=== PATIENT | female | born 1935 | race Caucasian/White ===

== ENCOUNTER 2020-04-07 23:24 | Emergency (ER) | payer MEDICARE, OTHER ==
[2020-04-07 23:31] VITALS: PULSE 130
[2020-04-08] MEDS ORDERED: Diltiazem 25 MG/5 ML SDV IVPUSH ONE (00:04)
--- NOTE | 2020-04-08 00:11 | EDM.PDOC ---
ED HPI GENERAL MEDICAL PROBLEM - General Chief Complaint: Abdominal Pain Stated Complaint: abd pain Time Seen by Provider: 04/08/20 00:00 Source of Information: Reports: Patient, RN History Limitations: Reports: No Limitations - History of Present Illness INITIAL COMMENTS - FREE TEXT/NARRATIVE: Pt presents tonight with right sided abdominal pain. Pain is lateral and where she points to is the upper to mid abdomen. She States that it started a couple of days ago and then became worse tonight. She had some increase in nausea today. Unsure if she took her meds today or not due to the nausea she was having. She thinks her head felt warm today but did not check her temp. No chills. She did not have diarrhea but had normal bowel movement today. She did vomit today unsure when the last time was. She denies any chest pain or SOB. She states that she can feel her heart beating fast "In my ears". She does have umbilical hernia that does not cause pain. Bowel sounds are hypoactive. Onset: Gradual Location: Reports: Abdomen Associated Symptoms: Reports: Nausea/Vomiting, Weakness. Denies: Chest Pain, Cough, Fever/Chills Right Upper Abdomen Pain Score (Numeric/FACES): 6 - Related Data Allergies Allergy/AdvReac Type Severity Reaction Status Date / Time atorvastatin [From Lipitor] Allergy Other Verified 04/07/20 23:33 Home Meds: Home Meds Apixaban [Eliquis] 2.5 mg PO BID 05/26/19 [History] Bumetanide [Bumex] 1 mg PO BID 05/26/19 [History] Metoprolol Tartrate [Lopressor] 12.5 mg PO BID 05/26/19 [History] dilTIAZem HCL [Cardizem Cd] 180 mg PO DAILY 05/26/19 [History] Past Medical History HEENT History: Reports: Impaired Vision, Other (See Below) Other HEENT History: WEARS CORRECTIVE LENS FOR READING. 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: Musculoskeletal History: Reports: None Neurological History: Reports: CVA Psychiatric History: Reports: None Endocrine/Metabolic History: Reports: None Hematologic History: Reports: Anemia, Blood Transfusion(s) Immunologic History: Reports: None Oncologic (Cancer) History: Reports: None Dermatologic History: Reports: None - Infectious Disease History Infectious Disease History: Reports: Chicken Pox, Influenza, MRSA - Past Surgical History Head Surgeries/Procedures: Reports: None HEENT Surgical History: Reports: Oral Surgery Cardiovascular Surgical History: Reports: None Respiratory Surgical History: Reports: None GI Surgical History: Reports: Hernia, Abdominal Female Surgical History: Reports: None Endocrine Surgical History: Reports: None Neurological Surgical History: Reports: None Musculoskeletal Surgical History: Reports: Other (See Below) Dermatological Surgical History: Reports: Skin Biopsy Social & Family History - Family History Family Medical History: No Pertinent Family History HEENT: Reports: Cataract Cardiac: Reports: Heart Failure, Stent Respiratory: Reports: None GI: Reports: None : Reports: None OBGYN: Reports: None Musculoskeletal: Reports: None Neurological: Reports: CVA, Seizure Psychiatric: Reports: None Endocrine/Metabolic: Reports: Diabetes, type II Hematologic: Reports: None Oncologic: Reports: Brain - Tobacco Use Tobacco Use Status *Q: Former Tobacco User Used Tobacco, but Quit: Yes Month/Year Tobacco Last Used: many years ago - Caffeine Use Caffeine Use: Reports: Coffee Other Caffeine Use: 24oz coffee. 4 cans soda daily - Recreational Drug Use Recreational Drug Use: No ED ROS GENERAL - Review of Systems Review Of Systems: See Below Constitutional: Reports: Weakness. Denies: Fever, Chills HEENT: Reports: No Symptoms Respiratory: Denies: Shortness of Breath, Cough Cardiovascular: Denies: Chest Pain, Edema GI/Abdominal: Reports: Abdominal Pain, Nausea, Vomiting. Denies: Constipation, Diarrhea : Reports: No Symptoms Musculoskeletal: Reports: No Symptoms Skin: Reports: No Symptoms Neurological: Reports: No Symptoms Psychiatric: Reports: No Symptoms ED EXAM, GI/ABD - Physical Exam Exam: See Below Exam Limited By: No Limitations General Appearance: Alert, WD/WN, Mild Distress Ears: Normal External Exam Throat/Mouth: Normal Inspection, Normal Oropharynx Head: Atraumatic, Normocephalic Neck: Normal Inspection, Supple, Non-Tender Respiratory/Chest: No Respiratory Distress, Lungs Clear, Normal Breath Sounds Cardiovascular: No Edema, Tachycardia, Irregularly Irregular GI/Abdominal Exam: Soft, Tender (to the right side of abdomen, laterally and upper to mid quadrants.. No rigidity. No guarding), Other (bowel sounds hypo active.) Back Exam: Normal Inspection Extremities: No Pedal Edema, Normal Capillary Refill Neurological: Alert, Oriented Skin Exam: Warm, Dry, Intact Course - Vital Signs Last Recorded V/S: Last Vital Signs Temp 98.4 F 04/08/20 00:22 Pulse 130 H 04/07/20 23:24 Resp 20 04/08/20 00:22 BP 158/54 H 04/08/20 00:22 Pulse Ox 98 04/08/20 00:22 - Orders/Labs/Meds Orders: Active Orders 24 hr Category Date Time Status Abdomen Pelvis wo Cont [CT] Stat Exams 04/08/20 00:48 Ordered Chest wo Cont [CT] Stat Exams 04/08/20 00:48 Ordered Pharmacy to Dose - Vancomycin Med 04/08/20 00:51 Once 1 dose .XX ONETIME ONE Piperacillin/Tazobactam [Piperacil-Tazobact] 3.375 gm Med 04/08/20 13:00 Active Sodium Chloride 0.9% [Normal Saline] 100 ml IV Q12H Piperacillin/Tazobactam [Piperacil-Tazobact] 4.5 gm Med 04/08/20 01:00 Active Sodium Chloride 0.9% [Normal Saline] 100 ml IV ONETIME Potassium Chloride [KCL 20 MEQ in Water 100 ML] 20 meq Med 04/08/20 00:54 Ordered Premix Bag 1 bag IV ONETIME Medication Orders Potassium Chloride 20 meq/ (Premix) 100 mls @ 25 mls/hr IV ONETIME ONE Stop: 04/08/20 04:53 Piperacillin Sod/Tazobactam (Sod 4.5 gm/ Sodium Chloride) 100 mls @ 200 mls/hr IV ONETIME ONE Stop: 04/08/20 01:29 Piperacillin Sod/Tazobactam (Sod 3.375 gm/ Sodium Chloride) 100 mls @ 25 mls/hr IV Q12H BRENDA Vancomycin HCl (Pharmacy To Dose - Vancomycin) 1 dose .XX ONETIME ONE Stop: 04/08/20 00:52 Labs: Laboratory Tests 04/07/20 04/07/20 04/07/20 Range/Units 23:47 23:54 23:58 WBC 26.9 H* (5.0-10.0) 10^3/uL RBC 5.13 (4.00-5.50) 10^6/uL Hgb 15.3 (12.0-16.0) g/dL Hct 45.3 (37.0-47.0) % MCV 88.3 (82.0-94.0) fL MCH 29.8 (27.0-32.0) pg MCHC 33.8 (33.0-38.0) g/dL RDW Coeff of Hilario 13.8 (11.0-15.0) % Plt Count 186 (150-400) 10^3/uL Add Manual Diff Yes Neutrophils % (Manual) 90 H (35-85) % Lymphocytes % (Manual) 6 L (21-55) % Monocytes % (Manual) 4 (2-12) % Sodium (136-145) mEq/L Potassium (3.5-5.0) mEq/L Chloride (98-106) mEq/L Carbon Dioxide (21-32) mmol/L BUN (7-18) mg/dL Creatinine (0.6-1.0) mg/dL Est Cr Clr Drug Dosing mL/min Estimated GFR (MDRD) (>=60) mL/min Glucose (75-99) mg/dL Lactic Acid (0.4-2.0) mmol/L Calcium (8.4-10.1) mg/dL Total Bilirubin (0.0-1.0) mg/dL AST (15-37) U/L ALT (12-78) U/L Alkaline Phosphatase (46-116) U/L Lactate Dehydrogenase (100-190) U/L Creatine Kinase (21-215) U/L Troponin I (0.00-0.06) ng/mL C-Reactive Protein (0.2-0.8) mg/dL NT-Pro-B Natriuret Pep (0-1000) pg/mL Total Protein (6.4-8.2) g/dL Albumin (3.4-5.0) g/dL Amylase (25-115) U/L Urine Color Yellow (YELLOW) Urine Appearance Clear (CLEAR) Urine pH 5.5 (4.5-8.0) Ur Specific Satin >= 1.030 H (1.003-1.020) Urine Protein Negative (NEGATIVE) mg/dL Urine Glucose (UA) Negative (NEGATIVE) mg/dL Urine Ketones Negative (NEGATIVE) mg/dL Urine Occult Blood Trace-intact H (NEGATIVE) Urine Nitrite Negative (NEGATIVE) Urine Bilirubin Negative (NEGATIVE) Urine Urobilinogen 1.0 (0.2-1.0) EU/dL Ur Leukocyte Esterase Negative (NEGATIVE) Urine RBC 0-5 (0-5) /HPF Urine WBC 0-5 (0-5) /HPF Ur Epithelial Cells Moderate H (NOT SEEN) /HPF Urine Bacteria Occasional H (NOT SEEN) /HPF Urinalysis Comment SARS CoV-2 RNA Rapid PHUC Negative (NEGATIVE) 04/07/20 04/07/20 04/08/20 Range/Units 23:58 23:58 00:32 WBC (5.0-10.0) 10^3/uL RBC (4.00-5.50) 10^6/uL Hgb (12.0-16.0) g/dL Hct (37.0-47.0) % MCV (82.0-94.0) fL MCH (27.0-32.0) pg MCHC (33.0-38.0) g/dL RDW Coeff of Hilario (11.0-15.0) % Plt Count (150-400) 10^3/uL Add Manual Diff Neutrophils % (Manual) (35-85) % Lymphocytes % (Manual) (21-55) % Monocytes % (Manual) (2-12) % Sodium 139 (136-145) mEq/L Potassium 2.6 L* (3.5-5.0) mEq/L Chloride 97 L (98-106) mEq/L Carbon Dioxide 31 (21-32) mmol/L BUN 33 H (7-18) mg/dL Creatinine 2.2 H (0.6-1.0) mg/dL Est Cr Clr Drug Dosing 18.74 mL/min Estimated GFR (MDRD) 21 L (>=60) mL/min Glucose 202 H (75-99) mg/dL Lactic Acid 4.6 H (0.4-2.0) mmol/L Calcium 9.7 (8.4-10.1) mg/dL Total Bilirubin 2.3 H (0.0-1.0) mg/dL AST 59 H (15-37) U/L ALT 37 (12-78) U/L Alkaline Phosphatase 110 (46-116) U/L Lactate Dehydrogenase 178 (100-190) U/L Creatine Kinase 26 (21-215) U/L Troponin I 0.025 (0.00-0.06) ng/mL C-Reactive Protein 11.3 H (0.2-0.8) mg/dL NT-Pro-B Natriuret Pep 62995 H (0-1000) pg/mL Total Protein 7.9 (6.4-8.2) g/dL Albumin 3.1 L (3.4-5.0) g/dL Amylase 67 (25-115) U/L Urine Color (YELLOW) Urine Appearance (CLEAR) Urine pH (4.5-8.0) Ur Specific Satin (1.003-1.020) Urine Protein (NEGATIVE) mg/dL Urine Glucose (UA) (NEGATIVE) mg/dL Urine Ketones (NEGATIVE) mg/dL Urine Occult Blood (NEGATIVE) Urine Nitrite (NEGATIVE) Urine Bilirubin (NEGATIVE) Urine Urobilinogen (0.2-1.0) EU/dL Ur Leukocyte Esterase (NEGATIVE) Urine RBC (0-5) /HPF Urine WBC (0-5) /HPF Ur Epithelial Cells (NOT SEEN) /HPF Urine Bacteria (NOT SEEN) /HPF Urinalysis Comment SARS CoV-2 RNA Rapid PHUC (NEGATIVE) Meds: Medications Generic Name Dose Route Start Last Admin Trade Name Freq PRN Reason Stop Dose Admin Potassium Chloride 20 meq/ 100 mls @ 25 mls/hr 04/08/20 00:54 Premix IV 04/08/20 04:53 ONETIME ONE Piperacillin Sod/Tazobactam 100 mls @ 200 mls/hr 04/08/20 01:00 Sod 4.5 gm/ Sodium Chloride IV 04/08/20 01:29 ONETIME ONE Piperacillin Sod/Tazobactam 100 mls @ 25 mls/hr 04/08/20 13:00 Sod 3.375 gm/ Sodium Chloride IV Q12H BRENDA Vancomycin HCl 1 dose 04/08/20 00:51 Pharmacy To Dose - Vancomycin .XX 04/08/20 00:52 ONETIME ONE Discontinued Medications Generic Name Dose Route Start Last Admin Trade Name Freq PRN Reason Stop Dose Admin Diltiazem HCl 10 mg 04/08/20 00:04 04/08/20 00:07 Diltiazem IVPUSH 04/08/20 00:05 10 mg ONETIME ONE Administration - Re-Assessments/Exams Free Text/Narrative Re-Assessment/Exam: 04/08/20 01:00 1245 I did discuss pt with Dr. Overton, hospitalist at [facility] in [place] and he did recommend CT chest, abdomen, pelvis without contrast due to her creatinine. Will start vancomycin and zosyn also due to the elevated WBC, and lactic acid. 04/08/20 02:00- Discussed results of CT with Dr. Overton- Pt has cholecystitis with sepsis. Dr. Overton will accept in transfer. Infusing NS at 30ml/kg. Stated weight 140#. Will not treat the tachycardia at this time other than with the fluids. IV Vancomycin and Zosyn are infusing as well as KCL 20 meq. Pt currently is afebrile with heart rate 120-140. BP 162/62. She continues to have abdominal pain that she doesn't want pain meds for at this time. "I can doze off with it so I'm fine". 04/08/20 02:34 Risks of transfer discussed with pt to include worsening of condition enroute, MVA and complications up to . Benefits of transfer would be to higher level of care with specialist and ICU if needed. Risk of non transfer would be lac of specialists and potential for worsening of condition. Pt voices understanding and agrees to transfer. Departure - Departure Time of Disposition: 02:43 Disposition: DC/Tfer to Acute Hospital 02 Condition: Serious Clinical Impression: Cholecystitis Sepsis Qualifiers: Sepsis type: sepsis due to unspecified organism Sepsis acute organ dysfunction status: without acute organ dysfunction Qualified Code(s): A41.9 - Sepsis, unspecified organism - Discharge Information *PRESCRIPTION DRUG MONITORING PROGRAM REVIEWED*: Not Applicable *COPY OF PRESCRIPTION DRUG MONITORING REPORT IN PATIENT MERT: Not Applicable Forms: ED Department Discharge Additional Instructions: Transfer to [facility] per ALS by [facility]. IV fluids will continue to infuse enroute. Sepsis Event Note (ED) - Evaluation Sepsis Screening Result: No Definite Risk - Focused Exam Vital Signs: Vital Signs Temp Pulse Resp BP Pulse Ox 04/08/20 00:22 98.4 F 20 158/54 H 98 04/08/20 00:10 18 125/48 L 95 04/07/20 23:46 16 127/57 L 96 04/07/20 23:24 97.3 F 130 H 16 156/70 H 97 - Problem List & Annotations (1) Sepsis SNOMED Code(s): 24121952 Code(s): A41.9 - SEPSIS, UNSPECIFIED ORGANISM Status: Acute Priority: High Current Visit: Yes Qualifiers: Sepsis type: sepsis due to unspecified organism Sepsis acute organ dysfunction status: without acute organ dysfunction Qualified Code(s): A41.9 - Sepsis, unspecified organism (2) Cholecystitis SNOMED Code(s): 26128292 Code(s): K81.9 - CHOLECYSTITIS, UNSPECIFIED Status: Acute Priority: High Current Visit: Yes - Problem List Review Problem List Initiated/Reviewed/Updated: Yes - My Orders Last 24 Hours: My Active Orders 04/08/20 00:48 Abdomen Pelvis wo Cont [CT] Stat Chest wo Cont [CT] Stat 04/08/20 00:51 Pharmacy to Dose - Vancomycin 1 dose .XX ONETIME ONE 04/08/20 00:54 Potassium Chloride [KCL 20 MEQ in Water 100 ML] 20 meq Premix Bag 1 bag IV ONETIME 04/08/20 01:00 Piperacillin/Tazobactam [Piperacil-Tazobact] 4.5 gm Sodium Chloride 0.9% [Normal Saline] 100 ml IV ONETIME 04/08/20 13:00 Piperacillin/Tazobactam [Piperacil-Tazobact] 3.375 gm Sodium Chloride 0.9% [Normal Saline] 100 ml IV Q12H - Assessment/Plan Last 24 Hours: My Active Orders 04/08/20 00:48 Abdomen Pelvis wo Cont [CT] Stat Chest wo Cont [CT] Stat 04/08/20 00:51 Pharmacy to Dose - Vancomycin 1 dose .XX ONETIME ONE 04/08/20 00:54 Potassium Chloride [KCL 20 MEQ in Water 100 ML] 20 meq Premix Bag 1 bag IV ONETIME 04/08/20 01:00 Piperacillin/Tazobactam [Piperacil-Tazobact] 4.5 gm Sodium Chloride 0.9% [Normal Saline] 100 ml IV ONETIME 04/08/20 13:00 Piperacillin/Tazobactam [Piperacil-Tazobact] 3.375 gm Sodium Chloride 0.9% [Normal Saline] 100 ml IV Q12H
[2020-04-08] MEDS ORDERED: Piperacillin/Tazobactam 3.375 GM in Sodium Chloride 0.9% 100 ML IV ONE (00:52)
[2020-04-08] MEDS ORDERED: Potassium Chloride 20 MEQ in Premix Bag 1 BAG IV ONE (00:54)
[2020-04-08] MEDS ORDERED: Piperacillin/Tazobactam 4.5 GM in Sodium Chloride 0.9% 100 ML IV ONE (01:00)
[2020-04-08] MEDS ORDERED: Sodium Chloride 0.9% 1,000 ML IV SCH ×2 (01:15→02:15)
[2020-04-08 03:10] VITALS: BP 139/67
[2020-04-08] MEDS ORDERED: Piperacillin/Tazobactam 3.375 GM in Sodium Chloride 0.9% 100 ML IV SCH (13:00)
== END 2020-04-08 03:40 ==
LOC: CC.ED 23:24
DX: A41.9 Sepsis, unspecified organism (principal); K81.9 Cholecystitis, unspecified; I48.91 Unspecified atrial fibrillation; I25.10 Atherosclerotic heart disease of native coronary artery without angina pectoris; I25.2 Old myocardial infarction; I12.9 Hypertensive chronic kidney disease with stage 1 through stage 4 chronic kidney disease, or unspecified chronic kidney disease; N18.9 Chronic kidney disease, unspecified; Z20.822 Contact with and (suspected) exposure to COVID-19; Z88.8 Allergy status to other drugs, medicaments and biological substances; Z87.891 Personal history of nicotine dependence; Z79.01 Long term (current) use of anticoagulants; Z79.899 Other long term (current) drug therapy; Z86.73 Personal history of transient ischemic attack (TIA), and cerebral infarction without residual deficits
CPT/HCPCS: 36415; 71250; 74176; 80053; 81001; 82150; 82550; 83605; 83615; 83880; 84484; 85025; 86140; 93010; 96365; 96366; 96367; 96375; 99284; 99285-25; J2543; J3370; J3480; J3490; J7030; J7050; U0002

== ENCOUNTER 2022-03-07 10:28 | Emergency (ER) | payer MEDICARE, MEDICAID ==
[2022-03-07 11:07] LABS: CHLORIDE,CL 98 mEq/L (98-106); ESTIMATED GFR 34 mL/min (>=60); SODIUM,NA 136 mEq/L (136-145)
[2022-03-07] MEDS: Metoprolol Tartrate 5 MG/5 ML SDV IVPUSH ONE ×2 (11:08→12:25)
[2022-03-07] MEDS: Sodium Chloride 0.9% 1,000 ML IV SCH (11:59)
[2022-03-07 12:25] VITALS: BP 151/95; PULSE 124
== END 2022-03-07 12:45 ==
LOC: CC.ED 10:28
DX: R41.4 Neurologic neglect syndrome (principal); I48.91 Unspecified atrial fibrillation; I25.10 Atherosclerotic heart disease of native coronary artery without angina pectoris; I25.2 Old myocardial infarction; I12.9 Hypertensive chronic kidney disease with stage 1 through stage 4 chronic kidney disease, or unspecified chronic kidney disease; N18.9 Chronic kidney disease, unspecified; Z88.8 Allergy status to other drugs, medicaments and biological substances; Z79.01 Long term (current) use of anticoagulants; Z79.899 Other long term (current) drug therapy; Z20.822 Contact with and (suspected) exposure to COVID-19
CPT/HCPCS: 36415; 70450; 80053; 82550; 84484; 85025; 85610; 85730; 93005; 96361; 96374; 96376; 99285; 99285-25; J3490; J7030; U0002